=== PATIENT | male | born 1995 | race Caucasian/White ===

== ENCOUNTER 2017-03-04 21:28 | Emergency (ER) | payer BC ==
[~2017-03-04] VITALS: Ht 180.3 cm; Wt 74.8 kg
[~2017-03-04 21:28] MED LIST: NORCO 5-325 TA1 EACH PO
== END 2017-03-05 01:10 | disposition home or self-care (01) ==
LOC: ED 21:28
DX: K52.9 Noninfective gastroenteritis and colitis, unspecified (principal)
CPT/HCPCS: 80053; 81001; 83690; 85025; 96374; 96375; 99283; J2405; J7030